=== PATIENT | female | born 1975 | race Native Hawaiian/Other Pacific Islander ===

== ENCOUNTER 2017-10-22 18:00 | Emergency (ER) | payer BC ==
[~2017-10-22] VITALS: Ht 157.5 cm; Wt 74.8 kg
[2017-10-22 20:07] LABS: PLATELET COUNT 437 K/uL (152-353)
== END 2017-10-22 21:45 | disposition home or self-care (01) ==
LOC: ED 18:00
DX: N10 Acute pyelonephritis (principal)
CPT/HCPCS: 36415; 81000; 85027; 87088; 96372; 99283; J0696